=== PATIENT | female | born 1975 ===

== ENCOUNTER 2024-11-04 13:42 | Outpatient (REF) | payer OTHER, SELFPAY | END 2024-11-04 13:43 | disposition home or self-care (01) | LOC: HO.LAB 13:42 | PROVIDERS: Visit Provider Advanced Practice Midwife | DX: Z13.89 Encounter for screening for other disorder (principal) ==

== ENCOUNTER 2024-11-04 13:42 | Outpatient (AMB) | payer OTHER, SELFPAY ==
--- NOTE | 2024-11-04 13:43 | MHC.OFFVIS ---
Vital Signs 11/04/24 14:26 Height 5 ft Weight 206 lb BMI 40.2 BP 126/78 Intake Visit Reasons: New patient annual Law Enforcement Director Services: Law Enforcement Director Present Information Interpreted: clinical only Insole Presser: Insole Presser Present Allergies No Known Allergies Allergy (Verified 11/04/24 13:48) Medication List - Last Reconciled 11/04/24 by Kasey Chau CNM amlodipine 5 mg PO DAILY Is last menstrual period known: No HPI HPI New patient annual: Details: patient is here is a new patient annual exam. She has lived in this area for about a year and she has an appointment with a primary care provider and she believes that person is at [facility] coming up but she has not seen them yet she had mammograms done last year and there was something that needed a biopsy last January of 2024 and it was fine and she had a follow-up mammogram 6 months from that in the July of this year and she said that that was fine and she has a six-month mammogram follow-up scheduled in January up. the last time she had sex was about last May she would be interested in testing for STIs. She is going through menopausal changes in that the last 2 years she has missed periods off and on again, the last period She had was in July. it was a little bit assistant than her normal. Pap smear was a couple of years ago. . Of note 117 pages of past medical records including colonoscopy records and same day urgent care visits was presented the day of her visit and briefly reviewed but Pap smear was not found. she has noted a little bit of a problem with holding her urine in the if per her norm she has not voided in about 3 hours if she coughs or sneezes then she will find herself with a little leaking. [facility] Medical History (Updated 11/04/24 @ 14:47 by Kasey Chau CNM) HTN (hypertension) Social History (Updated 11/04/24 @ 14:08 by Annalisa Franklin CMA) Alcohol intake: current Alcohol intake frequency: holidays/special occasions only Patient Tobacco Use Status: Never used Tobacco Female Reproductive History Menstrual control method: none Total pregnancies: 4 Full term: 4 Date of last pap smear: 08/28/21 (negative per patient) Physical Exam Const General: healthy appearing, comfortable, no acute distress, well developed and alert Nutritional Appearance: average body habitus Orientation/consciousness: patient oriented x3 Limitations: no limitations HEENT Head: Yes normocephalic Neck Neck: Yes normal visual inspection Chest Chest palpation & inspection: normal inspection of the chest Breast/axilla inspection: normal inspection of the breasts and normal inspection of the axillae Breast/axilla palpation: normal palpation of the breasts and normal palpation of the axillae Resp Effort & Inspection: normal respiratory effort GI Inspection: Yes normal to inspection, No Abdominal wall edema and No distended Palpation (GI): Soft to palpation and nontender Other: cervix is pink smooth large multiparous, however the cervical os is pinpoint tiny closed. There is a approximately 2 cm circular dark purple spot that appears to be a blood blister underneath the mucosal surface it did not bleed when doing the Pap Pap obtained with Cytobrush broom and spatula to obtain largest sampling. vagina otherwise pink moist within normal limits cervix long close thick mobile parous adnexa nontender uterus difficult to feel secondary to adipose but nontender and does not feel enlarged and good muscle tone noted with Kegel. of note her 1st child was born 35 years ago in [place], as was the 2nd sometime after. She has evidence of a right medial lateral episiotomy into her right buttock. General: Yes bladder normal to palpation External Female Exam: normal external appearance and normal appearance of the urethra Speculum Exam - Vagina: normal appearance of the vagina, normal palpation and normal vaginal discharge Speculum Exam - Cervix: normal appearance of the cervix, normal palpation and nontender Bimanual exam- vagina & uterus: normal bimanual exam, normal palpation, uterine size normal, bladder normal to palpation, consistency normal, normal palpation, uterine mobility normal, uterine shape normal, No Cervical tenderness present, non-tender and no cervical motion tenderness Bimanual Exam- Adnexa, other: normal adnexae, no masses, normal and No adnexal tenderness Neuro General: patient oriented x3 Results Reviewed Results Reviewed: 117 pages of primary care and GI care notes reviewed. Assessment & Plan Assessment & Plan (1) Women's annual routine gynecological examination: Code(s): Z01.419 - Encounter for gynecological examination (general) (routine) without abnormal findings Category: Medical (2) Cervical cancer screening: Comment: patient states Pap -2 years ago we will do Pap. Code(s): Z12.4 - Encounter for screening for malignant neoplasm of cervix Category: Medical (3) Breast cancer screening: Comment: patient states she had breast biopsy last January 2024 and had negative results and negative follow-up six-month mammogram and has a six-month mammogram scheduled for January of 2025 Code(s): Z12.39 - Encounter for other screening for malignant neoplasm of breast Category: Medical (4) Encounter for screening examination for sexually transmitted disease: Code(s): Z11.3 - Encounter for screening for infections with a predominantly sexual mode of transmission Category: Medical (5) Perimenopausal symptoms: Code(s): N95.1 - Menopausal and female climacteric states Category: Medical Plan -----Discussed in this visit the following: healthy balanced diet, regular and consistent exercise, getting recommended health screens, doing the best she can for her particular health concerns, kegel exercises, pap smear screening and followup recommendations, mammography screening and SBE, normal changes in cycles in her life stage--- . she is going to be following up with previous plans made by the provider's following her mammograms she will be meeting her new primary soon in the month and will follow-up with them as well for any other issues including if my suggestions about trying to void more frequently and not hold her urine do not meet with any resolution of her issue. she will be scheduled to see the functional consultant to view her cervix more completely Pap smears done as well as testing for gonorrhea chlamydia trichomoniasis Marie and bacterial vaginosis today we will await the Pap. Coding Level of Care Code New Pt Prev Care 40-64y(57607) Diagnoses Women's annual routine gynecological examination Z01.419 Cervical cancer screening Z12.4 Breast cancer screening Z12.39 Encounter for screening examination for sexually transmitted disease Z11.3 Perimenopausal symptoms N95.1
[2024-11-04 14:26] VITALS: BP 126/78; BMI 40.2
== END 2024-11-04 15:22 | disposition home or self-care (01) ==
LOC: HO.HWSM 13:42
PROVIDERS: Visit Provider Advanced Practice Midwife
DX: Z01.419 Encounter for gynecological examination (general) (routine) without abnormal findings (principal); N95.1 Menopausal and female climacteric states
CPT/HCPCS: 99386; 99459

== ENCOUNTER 2024-11-04 15:09 | Outpatient (REF) | payer OTHER, SELFPAY ==
[2024-11-05 07:13] LABS: CT PCR NOT DETECTED (Not Detect.); NG PCR NOT DETECTED (Not Detect.)
[2024-11-05 08:42] LABS: Bacterial Vaginosis PCR NEGATIVE (Negative); Candida Group PCR DETECTED (Not Detect); Candida glab krusei PCR NOT DETECTED (Not Detect); Trichomonas vaginalis PCR NOT DETECTED (Not Detect)
[2024-11-10 14:40] LABS: HPV Genotype 16 Negative (Negative); HPV Genotype 18 Negative (Negative); HPV High Risk Negative (Negative)
== END 2024-11-04 15:10 | disposition home or self-care (01) ==
LOC: HO.LNP 15:09
PROVIDERS: Visit Provider Advanced Practice Midwife
DX: Z00.00 Encounter for general adult medical examination without abnormal findings (principal); N89.8 Other specified noninflammatory disorders of vagina
CPT/HCPCS: 81515; 87491; 87591; 87626; 88175

== ENCOUNTER 2024-11-24 15:22 | Outpatient (AMB) | payer OTHER, SELFPAY ==
--- NOTE | 2024-11-24 15:30 | MHC.OFFVIS ---
Vital Signs 11/24/24 15:31 Height 5 ft Weight 206 lb BMI 40.2 Intake Visit Reasons: check cervix Emergency Spill Response Technician Required: Yes Emergency Spill Response Technician Language: Hoop Driving Machine Operator Helper Services: Emergency Spill Response Technician Present (in person) Emergency Spill Response Technician Name: Mya STUART Information Interpreted: non-clinical & clinical Shop Lead: Shop Lead Present (Mya STUART) Accompanied by: Self / Same As Patient Allergies No Known Allergies Allergy (Verified 11/24/24 15:33) Post menopausal: Yes HPI Comments Details: Presenting referred from Kasey Chau CNM regarding cervical lesion identified, pelvic exam. The patient gives a history of amenorrhea for 4 months followed by bleeding that started 2 days ago no other associated symptoms. 11/21 co testing was negative Last mammogram was in July of 2024, at [facility] no reports available according to patient had right breast biopsy in she has been followed up with diagnostic mammogram/ultrasound every six-month next 1 is scheduled in 02/20 [facility] Medical History HTN (hypertension) Social History Alcohol intake: current Alcohol intake frequency: holidays/special occasions only Patient Tobacco Use Status: Never used Tobacco Review of Systems Const All systems reviewed & are unremarkable except as noted in HPI and below Physical Exam Vital Signs: BMI result Body Mass Index 40.2 General: Yes no CVA tenderness External Female Exam: normal external appearance and normal appearance of the urethra Speculum Exam - Vagina: normal appearance of the vagina, normal palpation, no lesions and no masses Speculum Exam - Cervix: normal appearance of the cervix (12:00 cervical lesion), normal palpation, no lesions, no masses and nontender Bimanual exam- vagina & uterus: normal bimanual exam, normal palpation, uterine size normal, normal palpation, uterine shape normal, No Cervical tenderness present and non-tender Bimanual Exam- Adnexa, other: normal adnexae Back/Spine/Pelvis Back: no CVA tenderness Office Procedures QUALITY ASSURANCE Biopsy Pre-Procedure Counseling: Before beginning the procedure, I conducted comprehensive counseling with the patient. We thoroughly discussed the procedure itself, including its details, alternatives, and all associated risks. This included but not limited to the following complications such as bleeding, infection, and injury to the vagina, bladder, and vessels, as well as the potential need for transfusion with all its associated risks. Subsequently, the patient sign the consent. Pap smear result: Negative Procedure: During the procedure, the following steps were performed: A speculum was inserted, Cervical biopsies were obtained from the 12 o'clock cervical lesion position Hemostasis was achieved using Monsel solution, and the patient tolerated the procedure well. Post-Procedure Instructions: The patient was advised to promptly contact the office or the after hours answering service or go to the emergency room if experiencing a temperature exceeding 100.4?F, abdominal pain, nausea/vomiting, or bleeding. Additionally, the patient was instructed to abstain from vaginal intercourse and bathtub use. The patient confirmed understanding of these instructions. Discharge Instructions: The patient was instructed to schedule a follow-up appointment in 2 weeks for further evaluation and management. Please note that this note was generated using a voice recognition program, and errors may have occurred during technical clerk. [id number] of Cervix Procedure code (CPT) selection complete Assessment & Plan Assessment & Plan (1) Abnormal uterine bleeding (AUB): Code(s): N93.9 - Abnormal uterine and vaginal bleeding, unspecified Category: Medical Plan: Co testing done, GC and chlamydia taken CBC, TSH, FSH/LH HCG, and pelvic ultrasound ordered. Discussed with the patient the different causes of abnormal bleeding including thyroid disorders, uterine and ovarian pathology, endometrial hyperplasia, carcinoma and other potential causes. Discussed with the patient the work up including CBC (to r/o anemia), TSH, FSH/LH pelvic Ultrasound, endometrial biopsy to r/o endometrial pathology. All questions answered and the patient verbalized understanding. Instructed the patient to schedule an appointment for an endometrial biopsy in 2 weeks. (2) Lesion of cervix: Code(s): N88.9 - Noninflammatory disorder of cervix uteri, unspecified Category: Medical Plan: Discussed with the patient the finding on pelvic exam 12:00 cervical lesion, biopsy taken, see procedure note Orders: Orders Lutenizing Hormone Today N93.9 - Abnormal uterine and vaginal bleeding, unspecified Follicle Stimulating Hormone Today N93.9 - Abnormal uterine and vaginal bleeding, unspecified TSH reflex Free T4 Today N93.9 - Abnormal uterine and vaginal bleeding, unspecified HCG Quantitative Today N93.9 - Abnormal uterine and vaginal bleeding, unspecified Complete Blood Count no Diff Today N93.9 - Abnormal uterine and vaginal bleeding, unspecified US pelvic and transvaginal Today N93.9 - Abnormal uterine and vaginal bleeding, unspecified AMB QUALITY ASSURANCE Biopsy Today N88.9 - Noninflammatory disorder of cervix uteri, unspecified Coding Level of Care Code Est Pt Level 3 (32327) Procedure Only Diagnoses Abnormal uterine bleeding (AUB) N93.9 Lesion of cervix N88.9 CPT Codes QUALITY ASSURANCE Biopsy - CPT: 74415-Fxpmyf of Cervix ([id number])
[2024-11-24 15:31] VITALS: BMI 40.2
== END 2024-11-25 10:02 | disposition home or self-care (01) ==
LOC: HO.HWS 15:22
PROVIDERS: Visit Provider Obstetrics & Gynecology
DX: N88.9 Noninflammatory disorder of cervix uteri, unspecified (principal); N93.9 Abnormal uterine and vaginal bleeding, unspecified
CPT/HCPCS: 57500

== ENCOUNTER 2024-11-24 15:22 | Outpatient (REF) | payer OTHER, SELFPAY ==
[2024-11-24 16:22] LABS: Hematocrit 40.8 % (37.0-47.0); Hemoglobin 13.6 g/dl (12.0-16.0); Mean Corpuscular HGB Conc 33.3 g/dl (31.0-35.0); Mean Corpuscular Hemoglobin 30.2 pg (27.0-33.0); Mean Corpuscular Volume 90.5 fL (80.0-98.0); Mean Platelet Volume 11.3 fL (9.4-12.3); Platelet Count 324 X10*3/uL (160-400); Red Blood Count 4.51 X10*6/uL (4.20-5.50); Red Cell Distribution Width 11.9 % (11.0-16.0); White Blood Count 8.3 X10*3/uL (4.8-10.8)
[2024-11-24 17:06] LABS: HCG Quantitative < 2 mIU/mL; TSH reflex Free T4 1.26 uIU/mL (0.32-4.0)
[2024-11-25 05:48] LABS: Follicle Stimulating Hormone 35.4 mIU/mL; Lutenizing Hormone 11.6 mIU/mL
== END 2024-11-24 15:23 | disposition home or self-care (01) ==
LOC: HO.LAB 15:22
PROVIDERS: Visit Provider Obstetrics & Gynecology
DX: N93.9 Abnormal uterine and vaginal bleeding, unspecified (principal); N88.9 Noninflammatory disorder of cervix uteri, unspecified
CPT/HCPCS: 36415; 57500; 83001; 83002; 84443; 84702; 85027

== ENCOUNTER 2024-11-24 16:08 | Outpatient (REF) | payer OTHER, SELFPAY | END 2024-11-24 16:09 | disposition home or self-care (01) | LOC: HO.LNP 16:08 | PROVIDERS: Visit Provider Obstetrics & Gynecology | DX: N88.9 Noninflammatory disorder of cervix uteri, unspecified (principal) | CPT/HCPCS: 88305 ==

== ENCOUNTER 2024-12-12 13:52 | Outpatient (REF) | payer OTHER, SELFPAY ==
--- NOTE | ~2024-12-12 | US_ITS ---
EXAMINATION: US PELVIS CLINICAL INFORMATION: Abnormal uterine bleeding COMPARISON: None available. TECHNIQUE: Ultrasound of the pelvis is performed using both transabdominal and transvaginal transducers along with Doppler. Transvaginal imaging is performed due to inadequate visualization transabdominally. FINDINGS: Uterus: The uterus is anteverted and measures 7.8 x 4.2 x 4.7 cm. Uterine volume = 80.5 mL. Nabothian cysts seen within an otherwise normal cervix. The double wall endometrial thickness is 12 mm. The uterus is smooth in contour and has heterogeneous myometrial echogenicity. There are 4 fibroid identified: A right fundal/corneal subserosal fibroid measures 1.7 x 1.6 x 2.9 cm. A central dorsal fundal subserosal fibroid measures 0.8 x 0.8 x 1.0 cm. A right mid uterine segment intramural fibroid measures 2.0 x 1.9 x 1.6 cm. A left lower uterine segment subserosal fibroid measures 1.5 x 1.1 x 1.3 cm. Adnexa: Both ovaries are visualized. There is normal color flow to the adnexa. There is no ovarian torsion. There is no pelvic ascites or fluid collection. Right ovary measures 3.8 x 2.4 x 3.7 cm. Volume = 17.4 mL. There is a simple follicular cyst measuring 3.1 x 2.4 x 3.0 cm. Otherwise normal sonographic appearance. Left ovary measures 3.5 x 1.5 x 2.4 cm. Volume = 6.9 mL. Normal sonographic appearance. US/US pelvic and transvaginal IMPRESSION: 1. Endometrial thickness measures 12 mm. 2. There are 4 discrete fibroid tumors as discussed, the largest measuring 1.7 x 1.6 x 2.9 cm within the right fundus. 3. There is a simple follicular cyst in the right ovary measuring 3.1 x 2.4 x 3.0 cm. 4. Normal left ovary. Electronically signed by: Saeid Russell MD 12/12/2024 03:23 PM EDT
--- OUTSIDE RECORDS SUMMARY | 2024-12-12 13:56 | XMS_ITS | Clinical Summary ---
Author Organization [facility] [address] [place] [address] [place] [address] Phone Care Team Providers Care Fire Extinguisher Sprinkler Inspector Name Role Phone Physician, Pcp Unknown Primary Care Provider Michelle vailable Social History Tobacco Use Types Packs/Day Years Used Date Smoking Tobacco: Never Assessed Comments Unknown Sex and Gender Information Value Date Recorded Sex Assigned at Not on file Legal Sex Female 10:53 AM EDT Gender Identity Not on file Sexual Orientation Not on file Plan of Treatment Upcoming Encounters Date Type Department Care Team (Late st Contact Info) Description 12/19/2024 11:00 AM EDT Evaluation Outpatient [address] [phone] Brady Gann, PT Health Maintenance Due Date Last Done Comments Breast Cancer Screening 1973 DTaP,Tdap,and Td Vaccines (1 - Tdap) 1992 Hepatitis B Vaccines (1 of 3 - 19+ 3-dose series) 1992 Cervical Cancer Screening: P ap Smear 1994 Pneumococcal Vaccine: 50+ Ye ars (1 of 1 - PCV) 10/21/2023 Zoster Vaccines (1 of 2) 10/21/2023 COVID-19 Vaccine ( - 2023-2 5 season) 2024 Colorectal Cancer Screening: Colonoscopy 12/04/2024 Depression Screening 12/04/2024 HIV Screening 12/04/2024 Hepatitis C Screening 12/04/2024 Social Influencers of Health Screening 12/04/2024 Influenza Vaccine (Season Ended) 2025 HIB Vaccines Aged Out No longer eligi ble based on patient's age to complete this topic HPV Vaccines Aged Out No longer eligi ble based on patient's age to complete this topic Hepatitis A Vaccines Aged Out No long er eligible based on patient's age to complete this topic IPV Vaccines Aged Out No longer eligi ble based on patient's age to complete this topic MMR Vaccines Aged Out No longer eligi ble based on patient's age to complete this topic Meningococcal ACWY Vaccine Aged Out N o longer eligible based on patient's age to complete this topic Meningococcal B Vaccine Aged Out No l onger eligible based on patient's age to complete this topic Pneumococcal Vaccine: Pediat rics (0 to 5 Years) and At-Risk Patients (6 to 64 Years) Aged Out No longer eligible b ased on patient's age to complete this topic RSV Immunization Patients Un roseann 20 months Aged Out No longer eligible b ased on patient's age to complete this topic Varicella Vaccines Aged Out No longer eligible based on patient's age to complete this topic Insurance MEDICAID - [place] Care Teams Fire Extinguisher Sprinkler Inspector Relationship Specialty Start Date End Date Physician, Pcp Unknown PCP - General 12/04/24
--- OUTSIDE RECORDS SUMMARY | 2024-12-12 13:56 | XMS_ITS | Continuity of Care Document ---
Author Organization [facility] Address [address] [place] [address] [address] [place] [phone] Phone Care Team Providers Care Benefits Consultant Name Role Phone Víctor NI, FLAKO, Christiano [...] Mins- [place] & [place] [facility], [address] [place] [address] [address], [id number], [place] tel:[phone] CVR [facility] Chronic venous hypertension (idiopathic) without complications of bilateral lower extremityEssent ial (primary) hypertension 5 Víctor NI, VERONICA ARRIOLA. [address] [facility] [address], [facility] [place], [id number] , [place]. tel:[phone] Referring Provider: Naveed Watson MD, [address] [place], [place] [address]wei [place], [address]. tel:[phone] [facility], [address] [place] [address] [address], [place], [id number], [place] tel:[phone] CVR - [place] [facility] [place] Chronic venous hypertension (idiopathic) with other complications of bilateral lower extremity Víctor NI, FLAKO, VERONICA Alvarado. [address] [facility], [address], [place], [id number] , [place]. tel:[phone] Referring Provider: Christiano Renee MD, FLAKO, VERONICA, [address] [facility] [address], [place], [address] . tel:[phone] Family History Family Member Type Diagnosis Age At Onset No Information Payers Payer name Insurance type Covered libertarian ID Grant chase([employer] [facility] [id number] Social History Type Description Quantity Date Captured [...]
== END 2024-12-12 13:53 | disposition home or self-care (01) ==
LOC: HO.HMGCX 13:52
PROVIDERS: PCP Internal Medicine; Visit Provider Obstetrics & Gynecology
DX: N93.9 Abnormal uterine and vaginal bleeding, unspecified (principal)
CPT/HCPCS: 76830; 76856

== ENCOUNTER → 2024-12-12 13:58 | Outpatient (BNV) | payer OTHER, SELFPAY | PROVIDERS: PCP Internal Medicine; Visit Provider Radiology Diagnostic Radiology | DX: D25.9 Leiomyoma of uterus, unspecified (principal); N83.01 Follicular cyst of right ovary | CPT/HCPCS: 76830; 76856 ==

== ENCOUNTER 2024-12-25 14:52 | Outpatient (REF) | payer OTHER, SELFPAY | END 2024-12-25 14:53 | disposition home or self-care (01) | LOC: HO.LNP 14:52 | PROVIDERS: PCP Internal Medicine; Visit Provider Obstetrics & Gynecology | DX: N93.9 Abnormal uterine and vaginal bleeding, unspecified (principal); Z32.02 Encounter for pregnancy test, result negative | CPT/HCPCS: 58100; 81025; 88305 ==

== ENCOUNTER 2024-12-25 14:52 | Outpatient (AMB) | payer OTHER, SELFPAY ==
--- OUTSIDE RECORDS SUMMARY | 2024-12-25 14:57 | XMS_ITS | Clinical Summary ---
Author Organization [address] Address [address] [place] [address] Phone Care Team Providers Care Registered Mail Clerk Name Role Phone Physician, Pcp Unknown Primary Care Provider Michelle vailable Encounters Date Type Department Care Team Description 12/19/2024 11:00 AM EDT Evaluation Outpatient Rehabilitation [address] [phone] Brady Gann, PT Patellofemoral disorder, right (Primary Dx); Pain in right knee 12/19/2024 Plan of Care Documentation Outpatient Rehabilitation [address] [phone] from Last 3 Months Social History Tobacco Use Types Packs/Day Years Used Date Smoking Tobacco: Never Assessed Comments Unknown Sex and Gender Information Value Date Recorded Sex Assigned at Not on file Legal Sex Female 10:53 AM EDT Gender Identity Not on file Sexual Orientation Not on file Plan of Treatment Upcoming Encounters Date Type Department Care Team (Late st Contact Info) Description 12/26/2024 11:30 AM EDT Treatment Outpatient Rehabilitation - [address] [phone] Kelli Toro, CONVERTER OPERATOR 12/30/2024 12:00 PM EDT Treatment Outpatient [address] [phone] Kelli Toro, CONVERTER OPERATOR 01/02/2025 11:30 AM EDT Treatment Outpatient [address] [phone] Kelli Toro, CONVERTER OPERATOR 01/06/2025 12:00 PM EDT Treatment Outpatient Rehabilitation [address], [place] [phone] Kelli Toro, CONVERTER OPERATOR 01/09/2025 12:00 PM EDT Treatment Outpatient Rehabilitation - [address] [phone] Kelli Toro, CONVERTER OPERATOR 01/13/2025 12:00 PM EDT Treatment Outpatient Rehabilitation - [address] [phone] Kelli Toro, CONVERTER OPERATOR 01/16/2025 12:00 PM EDT Treatment Outpatient Rehabilitation - [address] [phone] Kelli Toro, CONVERTER OPERATOR 01/20/2025 12:00 PM EDT Treatment Outpatient Rehabilitation - [address] [phone] Brady Gann, PT Health Maintenance Due Date Last Done Comments Breast Cancer Screening 1973 Hepatitis B Vaccines (1 of 3 - 19+ 3-dose series) 1992 Cervical Cancer Screening: Pap Smear 1994 Pneumococcal Vaccine: 50+ Years (1 of 1 - PCV) 10/21/2023 Zoster Vaccines (1 of 2) 10/21/2023 05/31/2012 COVID-19 Vaccine (2023- season) 2024 08/09/2021, 11/20/2020, 10/25/2020 Cholesterol Screening (Lipid Panel) 12/04/2024 Colorectal Cancer Screening: Colonoscopy 12/04/2024 Depression Screening 12/04/2024 HIV Screening 12/04/2024 Hepatitis C Screening 12/04/2024 Social Influencers of Health Screening 12/04/2024 Hypertension/CHF/CAD Annual BMP Blood Test 12/19/2024 DTaP,Tdap,and Td Vaccines (3 - Td or Tdap) 03/16/2032 03/16/2022, 05/31/2012 MMR Vaccines Aged Out 05/29/2012 No longer eligi ble based on patient's age to complete this topic Varicella Vaccines Aged Out 05/31/2012 No longer eligible based on patient's age to complete this topic Influenza Vaccine Completed 10/08/2024, , 07/04/2021, Additional history exists HIB Vaccines Aged Out No longer eligi [...] age to complete this topic Pneumococcal Vaccine: Pediatrics (0 to 5 Years) and At-Risk Patients (6 to 64 Years) Aged Out No longer eligible based on patient's age to complete this topic RSV Immunization Patients Under 20 months Aged Out No longer eligible based on patient's age to complete this topic Insurance [place] - [place] [facility] [address] [place] [address] Care Teams Registered Mail Clerk Relationship Specialty Start Date End Date Physician, Pcp Unknown PCP - General 12/04/24
[2024-12-25 15:04] VITALS: BMI 40.2
--- NOTE | 2024-12-25 15:04 | MHC.OFFVIS ---
Vital Signs 12/25/24 15:04 Height 5 ft Weight 206 lb BMI 40.2 Intake Visit Reasons: Ultrasound follow/EMB Fiberglass Roving Winder Required: Yes Fiberglass Roving Winder Language: Gluer Machine Setup Operator Services: Fiberglass Roving Winder Present (in person) Fiberglass Roving Winder Name: Mya STUART Information Interpreted: non-clinical & clinical Seafood Processor: Seafood Processor Present (Mya STUART) Accompanied by: Self / Same As Patient Allergies No Known Allergies Allergy (Verified 12/25/24 15:08) HPI Comments Details: Presenting for EMB [facility] Medical History HTN (hypertension) Social History Alcohol intake: current Alcohol intake frequency: holidays/special occasions only Patient Tobacco Use Status: Never used Tobacco Review of Systems Const All systems reviewed & are unremarkable except as noted in HPI and below Reports as per HPI and Reports no additional complaints GI Reports no additional complaints Reports no additional complaints Physical Exam Vital Signs: BMI result Body Mass Index 40.2 Office Procedures Endometrial Biopsy Details: The patient was counseled regarding the indication and benefits of endometrial sampling to rule out endometrial pathology including not limited to endometrial hyperplasia or endometrial cancer and others; The alternatives (Either do nothing vs. hysteroscopy D&C) & the risks were discussed with the patient including but not limited: pain, uterine perforation, bleeding, infection, possible injury to bladder, bowel, ureter, possible need for blood transfusion with all its possible risks. The patient verbalized understanding all questions answered and signed consent. Urine test done in the office was negative The patient was placed into the dorsal lithotomy position; a speculum was inserted in the vagina. Using aseptic technique for the procedure, the cervix was cleansed with Betadine. The anterior lip of the cervix was grasped with a single tooth tenaculum. The uterus was sounded to 7 cm with a 4 mm Pipelle was used. Tissues samples were obtained and placed in formalin, in a patient labeled container and sent to the pathology department. At the end of the procedure, there was minimal bleeding noted The patient tolerated the procedure well and was discharged in good condition with the following instructions: Nothing in the vagina until the bleeding stops. No sex until the bleeding stops, to call if any of the following occurs: fever (>100.4), flu-like symptoms, abdominal pain, heavy bleeding, four smelling vaginal discharge. The patient was instructed to schedule a Follow up appointment in 2 weeks to discuss pathology results of the biopsy and treatment options. This note was generated with a voice recognition program. Some errors may have been overlooked during the review of this note. Sometimes these errors may affect the content or meaning of a given sentence. 32752-[id number] Biopsy Assessment & Plan Assessment & Plan (1) Abnormal uterine bleeding (AUB): Code(s): N93.9 - Abnormal uterine and vaginal bleeding, unspecified Category: Medical Plan: EMB done, see procedure note Orders: Orders AMB Endometrial Biopsy Today N93.9 - Abnormal uterine and vaginal bleeding, unspecified Coding Level of Care Code Procedure Only Diagnoses Abnormal uterine bleeding (AUB) N93.9 CPT Codes Endometrial Biopsy - CPT: 36493-[id number] Biopsy ([id number])
== END 2024-12-25 15:50 | disposition home or self-care (01) ==
LOC: HO.HWS 14:52
PROVIDERS: PCP Internal Medicine; Visit Provider Obstetrics & Gynecology
DX: N93.9 Abnormal uterine and vaginal bleeding, unspecified (principal); Z32.02 Encounter for pregnancy test, result negative
CPT/HCPCS: 58100

== ENCOUNTER 2025-01-29 13:29 | Outpatient (AMB) | payer OTHER, SELFPAY ==
--- OUTSIDE RECORDS SUMMARY | 2024-11-25 09:30 | XMS_ITS | Continuity of Care Document ---
Author Organization [facility] Address [address] [place] [address] [address] [place] [address] Phone Care Team Providers Care Town Marshal Name Role Phone Víctor NI, FLAKO, Christiano MARTIN Unavailable U navailable Allergies, Adverse Reactions, Alerts Substance Reaction Status Criticality No Known Allergies Active No Inform ation Medications Medication Instructions Dosage Effective Dates (start - stop) Status Comments amlodipine 5 mg tablet - Active Procedures Procedure Date Office/Oupt E&M New Pt 30 Mins- CT & [place] Duplex Scan-extrem Veins; Comp- CT & [place] Advance Directives Directive Yes / No Effective Date File Name No Information Encounters Encounter Description Practice Location Reason(s) For Visit Diagnoses Date Provider Providers Copied on Encounter Office/Oupt E&M New Pt 30 Mins- [place] & [place] [facility], [address] [place] [address] Dr [address], [id number], [place] tel:[phone] CVR [facility] Chronic venous hypertension (idiopathic) without complications of bilateral lower extremityEssent ial (primary) hypertension 5 Víctor NI, VERONICA ARRIOLA. [address] [facility] [address], [facility] [place], [id number] , [place]. tel:[phone] Referring Provider: Naveed Watson MD, [address] [place], [place] [address]wei [place], [address]. tel:[phone] [facility], [address] [place] [address] [address], [place], [id number], [place] tel:[phone] CVR - [place] [facility] Chronic venous hypertension (idiopathic) with other complications of bilateral lower extremity Víctor NI, FLAKO, VERONICA Alvarado. [address] [facility], [address], [place], [id number] , [place]. tel:[phone] Referring Provider: Christiano Renee MD, FLAKO, VERONICA, [address] [facility] [address], [place], [address] . tel:[phone] Family History Family Member Type Diagnosis Age At Onset No Information Payers Payer name Insurance type Covered green party ID Grant chase([employer] [facility] [id number] Social History Type Description Quantity Date Captured Comments Alcohol Use Details Unknown Caffeine Use Details Unknown Tobacco Use Status Current non-smoker Smoking Status Never Smoker Non-Smoking Tobacco Use Details : No Details Available : No Details Available Sex Female Vital Signs Date / Time: Height Weight BMI Pulse Rate Blood Pressure Temperature Respiratory Rate Body Surface Area Head Circumference Head Circ. Percentile Wt./Gregor. Percentile BMI percentile Pulse Ox Inhaled Ox 92.080 kg (203.00 lbs) 36.0 1 kg/m eter (2) 132/84 mm[Hg] Chief Complaint And Reason For Visit No Information Reason For Referral Reason For Referral No Information Plan Of Treatment Date Type Action Status Goal Diet education completed Referral Ordered: Weight management: Referral to physician timeframe: 3 Months (related to Body mass index (BMI) 36.0-36.9, adult) ordered Appointment Dari Nobles BOOKED Appointment Dari Nobles BOOKED Appointment Dari Nobles BOOKED Appointment Dari Nobles BOOKED Appointment Dari Nobles BOOKED Appointment Dari Nobles BOOKED Appointment Dari Nobles BOOKED History Of Present Illness Encounter Date Complaint History Of Prese nt Illness No Information Functional Status Date Functional Assessmen t No Information Instructions Date Instruction Additional Infor mation Lifestyle education Related to B peña mass index (BMI) 36.0-36.9, adult Patient education booklet given Related to Chronic venous hypertension (idiopathic) without complications of bilateral lower extremity Pre and post instruc tions reviewed and provided Related to Chronic venous hypertension (idiopathic) without complications of bilateral lower extremity Diet education Related to Body mass index (BMI) 36.0-36.9, adult Giving Encouragement to exercise Related to Body mass index (BMI) 36.0-36.9, adult Assessments Type Assessment Date No Information Patient Care Teams Name Effective Dates (start - stop) Status Members No Information
--- NOTE | 2025-01-29 13:31 | MHC.OFFVIS ---
Intake Visit Reasons: emb results Therapist'S Assistant Required: Yes Therapist'S Assistant Language: Licensed Psychiatric Technician Services: Therapist'S Assistant Present (in person) Therapist'S Assistant Name: Mya STUART Information Interpreted: non-clinical & clinical Spear Fisher: Spear Fisher Present (SADE Granda) Accompanied by: Self / Same As Patient Allergies No Known Allergies Allergy (Verified 01/29/25 13:32) HPI Comments Details: The patient is presenting for follow-up to discuss the results of her abnormal uterine bleeding workup and options of treatment. The following workup was done.: H&H= 13.6/40.8 TSH, hCG, GC and chlamydia were negative. FSH/LH 35.4/11.6 Endometrial biopsy pathology showed the following: Strips of inactive endometrium, tubal metaplasia and focal metaplastic changes; negative for atypia, hyperplasia or malignancy Co testing was done was negative. Mammogram was negative. Pelvic ultrasound showed the following: Uterus: The uterus is anteverted and measures 7.8 x 4.2 x 4.7 cm. Uterine volume = 80.5 mL. Nabothian cysts seen within an otherwise normal cervix. The double wall endometrial thickness is 12 mm. The uterus is smooth in contour and has heterogeneous myometrial echogenicity. There are 4 fibroid identified: A right fundal/corneal subserosal fibroid measures 1.7 x 1.6 x 2.9 cm. A central dorsal fundal subserosal fibroid measures 0.8 x 0.8 x 1.0 cm. A right mid uterine segment intramural fibroid measures 2.0 x 1.9 x 1.6 cm. A left lower uterine segment subserosal fibroid measures 1.5 x 1.1 x 1.3 cm. Adnexa: Both ovaries are visualized. There is normal color flow to the adnexa. There is no ovarian torsion. There is no pelvic ascites or fluid collection. Right ovary measures 3.8 x 2.4 x 3.7 cm. Volume = 17.4 mL. There is a simple follicular cyst measuring 3.1 x 2.4 x 3.0 cm. Otherwise normal sonographic appearance. Left ovary measures 3.5 x 1.5 x 2.4 cm. Volume = 6.9 mL. Normal sonographic appearance. [facility] Medical History HTN (hypertension) Social History Alcohol intake: current Alcohol intake frequency: holidays/special occasions only Patient Tobacco Use Status: Never used Tobacco Review of Systems Const All systems reviewed & are unremarkable except as noted in HPI and below Reports as per HPI and Reports no additional complaints GI Reports no additional complaints Reports no additional complaints Assessment & Plan Assessment & Plan (1) Abnormal uterine bleeding (AUB): Comment: Elevated FSH Code(s): N93.9 - Abnormal uterine and vaginal bleeding, unspecified Category: Medical Plan: Discussed with the patient the results of the work up done and options of treatment including Lysteda, BCP's, Mirena IUD, endometrial ablation and hysterectomy. All pros, cons, risks and benefits if each option was discussed with the patient and the patient decided to think about it and get back to us. All questions answered the patient verbalized understanding. 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 Discussed with the patient the options of treatment including expectant management versus hysterectomy; the pros and cons, risks benefits of each approach were discussed with the patient including the fact that in cases of myosarcoma, surgical treatment can lead to early diagnosis and positively affects the prognosis; after further discussion, the patient decided to proceed with expectant management. Will repeat pelvic ultrasound periodically. Instructions given to patient to call in case any of the following occurs: pressure symptoms, abnormal uterine bleeding, pelvic pain; and to schedule a six-months pelvic ultrasound (order placed) and a follow-up appointment . All questions answered, the patient verbalized understanding and agreed with the plan . Orders: Orders US pelvic and transvaginal 6 Months D25.9 - Leiomyoma of uterus, unspecified Coding Level of Care Code Est Pt Level 3 (65504) Diagnoses Abnormal uterine bleeding (AUB) N93.9 Uterine myoma D25.9
--- OUTSIDE RECORDS SUMMARY | 2025-01-29 13:38 | XMS_ITS | Clinical Summary ---
Author Organization [address] Address [address] [place] [address] Phone Care Team Providers Care Rug Dry Room Attendant Name Role Phone Kasey Wright MD Primary Care Provider [phone] Encounters Date Type Department Care Team Description 01/05/2025 12:00 PM EDT Treatment Outpatient Rehabilitation [address] [phone] Kelli Toro, AGRICULTURAL ECONOMIST Patellofemoral disorder, right (Primary Dx) 01/02/2025 11:30 AM EDT Treatment Outpatient [address] [phone] Kelli Toro, AGRICULTURAL ECONOMIST Patellofemoral disorder, right (Primary Dx) 12/26/2024 11:30 AM EDT Treatment Outpatient [address] [phone] Kelli Toro, AGRICULTURAL ECONOMIST Patellofemoral disorder, right (Primary Dx) 12/19/2024 11:00 AM EDT Evaluation Outpatient [address] [phone] Brady Gann, PT Patellofemoral disorder, right (Primary Dx); Pain in right knee 12/19/2024 Plan of Care Documentation Outpatient Rehabilitation [address] [phone] from Last 3 Months Social History Tobacco Use Types Packs/Day Years Used Date Smoking Tobacco: Never Assessed Comments Unknown Sex and Gender Information Value Date Recorded Sex Assigned at Not on file Legal Sex Female 10:53 AM EDT Gender Identity Not on file Sexual Orientation Not on file Plan of Treatment Health Maintenance Due Date Last Done Comments Breast Cancer Screening 1973 Hepatitis B Vaccines (1 of 3 - 19+ 3-dose series) 1992 Cervical Cancer Screening: Pap Smear 1994 Pneumococcal Vaccine: 50+ Years (1 of 1 - PCV) 10/21/2023 Zoster Vaccines (1 of 2) 10/21/2023 05/31/2012 COVID-19 Vaccine ( season) 2024 08/09/2021, 11/20/2020, 10/25/2020 Cholesterol Screening [...] complete this topic Insurance MEDICAID - [place] [facility] Care Teams Rug Dry Room Attendant Relationship Specialty Start Date End Date Kasey Wright MD [address] [facility] [place] [address] PCP - General Family Medicine 01/02/25
== END 2025-01-29 13:51 | disposition home or self-care (01) ==
LOC: HO.HWS 13:30
PROVIDERS: PCP Internal Medicine; Visit Provider Obstetrics & Gynecology
DX: N93.9 Abnormal uterine and vaginal bleeding, unspecified (principal); D25.9 Leiomyoma of uterus, unspecified
CPT/HCPCS: 99213